=== PATIENT | female | born 1990 | race Caucasian/White ===

== ENCOUNTER 2018-07-08 10:56 | Day surgery (SDC) | payer BC ==
[~2018-07-08] VITALS: Ht 157.5 cm; Wt 66.2 kg
[2018-07-08 11:23] LABS: BASOPHILS 0.2 % (0-2); EOSINOPHILS 4.1 % (0-7); HEMATOCRIT 35.1 % (36.0-48.0); HEMOGLOBIN 11.5 g/dL (12-16); IMMATURE GRANULOCYTES 0.3 % (0-5); LYMPHOCYTES 31.7 % (15-50); MCH 21.5 pg (26.0-34.0); MCHC 32.8 g/dL (31.0-37.0); MCV 65.7 fL (80.0-100.0); MEAN PLATELET VOLUME 10.2 fL (7.4-10.4); MONOCYTES 6.7 % (2-11); PLATELET COUNT 241 10x3/uL (130-400); RBC 5.34 10x6/uL (4.00-5.40); RDW 15.1 % (11.5-14.5); WBC 6.5 10x3/uL (4.8-10.8)
[2018-07-08] MEDS ORDERED: GLUCOPHAGE1000 MG PO (11:33)
[2018-07-08] MEDS ORDERED: CETIRIZINE HCL5 MG PO (11:33)
[2018-07-08] MEDS ORDERED: KEFLEX500 MG PO (11:34)
[2018-07-08 11:35] LABS: HCG SERUM NEGATIVE (NEGATIVE)
[2018-07-08 11:38] VITALS: BP 111/72; Ht 157.5 cm; Wt 66.2 kg
[2018-07-08] MEDS ORDERED: HYDROCODON-ACE1 EAC7 PO (13:39)
[2018-07-08] MEDS ORDERED: AMOXICILLIN500 M1 PO (13:40)
--- NOTE | 2018-07-08 14:21 | NUR ---
1420 WARM BLANKET APPLIED FOR SHIVERING. PT HAS SLING, RIGHT EYE LESS OPEN. SMILE LESS PERKY.
--- NOTE | 2018-07-08 14:28 | NUR ---
1425 FL ADA SERVED. FAMILY AT SIDE.
--- NOTE | 2018-07-08 15:25 | NUR ---
1444 DC INSTS GIVEN, VOICED UNDERSTANDING RX'S GIVEN RELEASED IN WC WITH ESCORT.
--- NOTE | 2018-07-14 09:43 | OP ---
PATIENT NAME: BERTIN SHAY MEDICAL RECORD: [id number] :90 LOCATION:[facility] ADMISSION DATE: SURGEON: ROBERT POE DO DATE OF OPERATION: 07/08/2018 PROCEDURES PERFORMED: Right middle finger middle phalanx open reduction and percutaneous pinning as well as extensor tendon cesar repair with irrigation and debridement. PREOPERATIVE DIAGNOSIS: Right middle finger open fracture of the middle phalanx and crush injury. POSTOPERATIVE DIAGNOSIS: Right middle finger open fracture of the middle phalanx and crush injury. INDICATIONS: Ms. Shay is a 27-year-old right-hand dominant female who dropped a barbell on her right middle finger approximately 3 days ago. She was seen in the ER. It was barely hanging on by the volar aspect of her finger and was sewn back on in the ER in [place] where it happened. They put her in a splint and told her to follow up with an orthopedic surgeon. I saw her on Friday and put her on schedule for yesterday, July 07; but due to OR restrictions and the hospital AC being out, could not do it. I put her on for today. I again had the same restrictions, but due to severity of her injury, we are willing to take the risk and do it. She is aware of the risks including infection, bleeding, damage to nerves and vessels that had not been done. Previous to this, it was difficult to examine her completely. She did have some sensation in the tip of the finger but not complete. It was pink and cap refill was less than 2 seconds. It was also difficult to examine her tendons due to the pain and the fracture that was very distal on the middle phalanx and was also rotated and comminuted. The patient is aware also she may need an amputation. She is aware of the risks of malrotation, nonunion, and need for further surgery. She signed the consent. SURGEON: Robert Poe DO DESCRIPTION OF PROCEDURE: The patient received a supraclavicular block in the preoperative area by anesthesia. She was taken to the operative suite and given TIVA for anesthesia. She was in the supine position. The right upper extremity was then prepped with Betadine and draped in sterile fashion. Time-out was performed. Everyone was in agreement with correct side, site, patient, and procedure, at which time I was informed the patient had been given a gram of Ancef preoperatively. The procedure then began by removing the sutures that were previously placed and getting an x-ray, showing that the distal part of the middle phalanx condyle was completely rotated with distal end dorsal and the proximal end volar. We had to open it, rotated it, and a small chunk of bone came out. This was removed. I then held the reduction and put a 0.035 K-wire distally through the distal phalanx and through the fracture site into the middle phalanx. This was lined up very well on AP and lateral. Her middle finger did not appear to have any malrotation. Once this was pinned, it was very stable. Previous to this, I inspected the flexor tendon and it was intact. The extensor cesar however at that level and what was left of the extensor tendon was not. This was then repaired with a syeehr-bf-tzule stitch and two single interrupted stitches of 4-0 Ethibond end to end. Then, this was irrigated and then the skin was closed with 4-0 Monocryl in a simple fashion. She was then dressed with Adaptic, 4 x 4s, and then a splint was placed on the finger. This was overwrapped with a 2-inch [place] wrap. She was then awakened and OPERATIVE REPORT [id number] BERTIN SHAY taken to recovery in stable condition. BLOOD LOSS: Minimal. COMPLICATIONS: None. TRANSINT:[id number] Voice Confirmation ID: [id number] DOCUMENT ID: [id number] ROBERT POE DO at 0943 CC: [id number] DICTATION DATE: 07/08/18 1336 PAD EXTRACTOR TENDER: 07/08/18 1501 [facility] 07/08/18 [facility] [address] [id number]
== END 2018-07-08 14:50 | disposition home or self-care (01) ==
LOC: D.OPS 10:56
PROVIDERS: Anesthesiology; ATTEND Orthopaedic Surgery
DX: S62.622B Displaced fracture of middle phalanx of right middle finger, initial encounter for open fracture (principal); S66.322A Laceration of extensor muscle, fascia and tendon of right middle finger at wrist and hand level, initial encounter; W22.8XXA Striking against or struck by other objects, initial encounter; Z01.812 Encounter for preprocedural laboratory examination